=== PATIENT | male | born 1990 | race Caucasian/White ===

== ENCOUNTER 2022-10-29 17:12 | Emergency (ER) | payer OTHER ==
[2022-10-29 17:44] VITALS: BP 144/85; PULSE 91; RESP 18; TEMP 98.1; BMI 25.8
== END 2022-10-29 19:20 | disposition home or self-care (01) ==
LOC: JERFT 17:12
DX: S80.911A Unspecified superficial injury of right knee, initial encounter (principal); W50.1XXA Accidental kick by another person, initial encounter; W18.30XA Fall on same level, unspecified, initial encounter; Y93.66 Activity, soccer
CPT/HCPCS: 73562-TC-RT-FY; 99283-25